=== PATIENT | male | born 1990 | race African-American/Black ===

== ENCOUNTER 2019-07-14 08:08 | Emergency (ER) | payer SELFPAY ==
[2019-07-14] MEDS ORDERED: CHERRY SYRUP 10 ML UDC PO ONE (09:45)
[2019-07-14] MEDS ORDERED: DEXAMETHASONE 10 MG/ML VIAL PO STA (09:45)
[2019-07-14] MEDS ORDERED: LIDOCAINE 1% 2 ML VIAL MC ONE (09:46)
[2019-07-14] MEDS ORDERED: cefTRIAXone 1 GM VIAL IM STA (09:46)
[2019-07-14] MEDS ORDERED: ACETAMINOPHEN 325 MG TABLET PO STA (09:46)
--- NOTE | 2019-07-14 09:53 | ED Physician Documentation ---
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 He has not had vomiting or diarrhea. He does have pain in his muscles that is excessive to him. 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 Review of Systems Constitutional: reports: Fever, Chills, Myalgias, Fatigue, Sweats Eyes: denies: Decreased vision Ears: denies: Ear pain Nose: reports: Rhinorrhea / runny nose, Congestion Throat: reports: Sore throat Cardiac: denies: Chest pain / pressure, Palpitations Respiratory: reports: Cough. denies: Dyspnea GI: denies: Nausea, Vomiting : denies: Dysuria PD PAST MEDICAL HISTORY - Present Medications Home Medications: Ambulatory Orders Medication Instructions Recorded Confirmed Amox/Clav 875/125 [Augmentin] 1 each PO Q12H #20 tablet 07/14/19 Oseltamivir Phosphate [Tamiflu] 75 mg PO BID #10 capsule 07/14/19 - Allergies Allergies/Adverse Reactions: Allergies Allergy/AdvReac Type Severity Reaction Status Date / Time aspirin Allergy Rash Verified 07/14/19 08:13 PD ED PE NORMAL - Vitals Vital signs reviewed: Yes (febrile, tachy and hypertensive) - General General: Alert and oriented X 3, Well developed/nourished, Other (appears ill moves slowly ) - HEENT HEENT: Atraumatic, PERRL, EOMI, Other (The left TM is inflamed with distortion of the landmarks. The right is clear. The pharynx is with swelling and erythema to the left tonsillar pillar. 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, No motor deficit, No sensory deficit Eye Opening: Spontaneous Motor: Obeys Commands Verbal: Oriented GCS Score: 15 - Psych Psych: Normal mood, Normal affect Results - Vitals Vitals: Vital Signs - 24 hr 07/14/19 08:13 Temperature 38.4 C H Heart Rate 107 H Respiratory 18 Rate Blood Pressure 142/96 H O2 Saturation 97 Oxygen O2 Source Room air - Labs Labs: Laboratory Tests 07/14/19 10:20 Influenza A (Rapid) POSITIVE H Influenza B (Rapid) Negative PD MEDICAL DECISION MAKING - ED course Complexity details: reviewed results, re-evaluated patient, considered differential, d/w patient ED course: 28-year-old male with a fever and myalgias with sore throat and cough has otitis on examination. He presents with symptoms during the covert outbreak and he is not hypoxic he does have muscle aches and fatigue as the primary symptom as well as cough. He does have alternative diagnosis to explain his symptoms and these are treated aggressively. He is administered 10 mg of dexamethasone and a gram of Rocephin IM. As well as Tylenol. He is swab for both coronavirus and influenza and instructed to self quarantine. Departure - Departure Clinical Impression: Influenza A Otitis media Qualifiers: Otitis media type: suppurative Chronicity: acute Laterality: left Recurrence: non-recurrent Spontaneous tympanic membrane rupture: without spontaneous rupture Qualified Code(s): H66.002 - Acute suppurative otitis media without spontaneous rupture of ear drum, left ear Condition: Stable Instructions: ED Fever Control, ED Otitis Media Acute Adult, Medication: Tamiflu (Oseltamivir), ED Flu Follow-Up: [facility] [Provider Group] Prescriptions: Amox/Clav 875/125 [Augmentin] 1 each PO Q12H #20 tablet Oseltamivir Phosphate [Tamiflu] 75 mg PO BID #10 capsule Comments: Today you have an acute febrile illness with a cough and we did discover a middle ear infection with this. Your flu swab is positive for influenza A and this is likely the reason for the rapid onset of illness. You are a candidate for the antiviral Tamiflu. However we did swab for coronavirus and the recommendation is to self quarantine at home until you are well. If you have to go out in public wear a mask. Your results should be available in 2 days time. Forms: Activity restrictions
[2019-07-14 11:17] VITALS: BP 136/76
== END 2019-07-14 11:17 | disposition home or self-care (01) ==
LOC: ED 08:08
DX: J10.1 Influenza due to other identified influenza virus with other respiratory manifestations (principal); H66.002 Acute suppurative otitis media without spontaneous rupture of ear drum, left ear; Z20.828 Contact with and (suspected) exposure to other viral communicable diseases
CPT/HCPCS: 87275; 87276; 87635; 96374; 99283; 99284; A9270; 81599

== ENCOUNTER 2020-05-15 17:39 | Outpatient (CLI) | payer OTHER | END 2020-05-15 17:40 | disposition home or self-care (01) | LOC: COV 17:39 | PROVIDERS: ATTEND Family Medicine | DX: U07.1 COVID-19 (principal); R05 Cough; R06.02 Shortness of breath; R53.83 Other fatigue; R68.83 Chills (without fever); R09.81 Nasal congestion; R19.7 Diarrhea, unspecified; R43.9 Unspecified disturbances of smell and taste ==